=== PATIENT | male | born 1995 | race African-American/Black ===

== ENCOUNTER 2019-08-07 18:44 | Emergency (ER) | payer OTHER ==
[~2019-08-07] VITALS: Ht 180.3 cm; Wt 72.0 kg
[2019-08-07] MEDS ORDERED: BACITRACIN ZINC OINT UDPKT TOP ONE (21:45)
[2019-08-07 22:03] VITALS: BP 120/73
== END 2019-08-07 22:03 | disposition home or self-care (01) ==
LOC: ER 18:44
DX: S71.151A Open bite, right thigh, initial encounter (principal); F17.200 Nicotine dependence, unspecified, uncomplicated; W54.0XXA Bitten by dog, initial encounter; Y93.9 Activity, unspecified; Y92.9 Unspecified place or not applicable
CPT/HCPCS: 99283